=== PATIENT | female | born 1995 | race Asian ===

== ENCOUNTER 2018-05-27 05:55 | Inpatient (IN) | payer SELFPAY ==
[~2018-05-27] VITALS: Ht 160 cm; Wt 47.6 kg
[2018-05-27] MEDS ORDERED: LR 1,000 ML IV SCH ×2 (06:10→10:25)
[2018-05-27] MEDS ORDERED: CEFAZOLIN 2 GM IVPB PREMIX 50 ML IV ONE (06:15)
[2018-05-27 07:39] LABS: BASOPHILS % (AUTO) 0.2 % (0.0-2.0); EOSINOPHILS # (AUTO) 0.1 K/uL (0.0-0.4); EOSINOPHILS % (AUTO) 0.9 % (0.0-4.0); HEMATOCRIT 33.8 % (36-48); HEMOGLOBIN 11.6 g/dL (12.0-16.0); LYMPHOCYTES # (AUTO) 1.5 K/uL (1.0-5.5); LYMPHOCYTES % (AUTO) 25.9 % (20.5-51.5); MEAN CORPUSCULAR HEMOGLOBIN 30 pg (27-31); MEAN CORPUSCULAR HGB CONC 34 % (32-36); MEAN CORPUSCULAR VOLUME 89 fL (79.0-98.0); MONOCYTES # (AUTO) 0.4 K/uL (0.0-1.0); MONOCYTES % (AUTO) 6.9 % (1.7-9.3); NEUTROPHILS % (AUTO) 66.1 % (40.0-70.0); PLATELET COUNT (AUTO) 193 K/uL (130-430); RED BLOOD CELL COUNT(AUTO) 3.81 MIL/uL (4.2-6.2); RED CELL DISTRIBUTION WIDTH 13.4 % (9.0-15.0)
[2018-05-27] MEDS ORDERED: MORPHINE SULFATE 10MG/10ML PF AMP SP SCH (08:15)
[2018-05-27] MEDS ORDERED: KETOROLAC TROMETHAMINE 30 MG VIAL IVP PRN (08:15)
[2018-05-27] MEDS ORDERED: ONDANSETRON HCL 4 MG/2 ML VIAL IVP PRN ×2 (08:15)
[2018-05-27] MEDS ORDERED: DIPHENHYDRAMINE INJ 50 MG/ML VIAL IVP PRN (08:15)
[2018-05-27] MEDS ORDERED: NALBUPHINE HCL 10 MG/ML AMP IVP PRN (08:15)
[2018-05-27] MEDS ORDERED: NALOXONE HCL 0.4 MG/ML AMP (NARCAN) IVP PRN ×2 (08:15)
[2018-05-27] MEDS ORDERED: fentaNYL CITRATE/PF 100 MCG/2 ML AMP IVP PRN ×2 (08:15)
[2018-05-27] MEDS ORDERED: KETOROLAC TROMETHAMINE 60 MG/2 ML VIAL IM PRN (08:15)
[2018-05-27] MEDS ORDERED: BUPIVACAINE /PF 0.75% 10 ML VIAL INJ ONE (09:10)
[2018-05-27] MEDS ORDERED: LR 1,000 ML IV.SOLN IV ONE (09:10)
[2018-05-27] MEDS ORDERED: ONDANSETRON HCL 4 MG/2 ML VIAL IVP ONE (09:10)
[2018-05-27] MEDS ORDERED: NS IRRIG SOLN 1000 ML IR ONE (09:10)
[2018-05-27] MEDS ORDERED: METOCLOPRAMIDE HCL 10 MG/2 ML VIAL IVP ONE (09:10)
[2018-05-27] MEDS ORDERED: MORPHINE SULFATE 10MG/10ML PF AMP EP ONE (09:10)
[2018-05-27] MEDS ORDERED: MIDAZOLAM HCL 5 MG/5 ML VIAL IVP ONE (09:10)
[2018-05-27] MEDS ORDERED: OXYTOCIN/0.9 % SODIUM CHLORIDE 1,000 ML IV ONE (10:25)
[2018-05-27] MEDS ORDERED: SENNOSIDES/DOCUSATE SODIUM 1 TAB TABLET(SENOKOT-S) PO PRN (10:30)
[2018-05-27] MEDS ORDERED: MEASLES,MUMPS&RUBELLA VACC/PF 12500 UNIT/0.5 ML VIAL SUBQ PRN (10:30)
[2018-05-27] MEDS ORDERED: LANOLIN 7 GM OINT. TP PRN (10:30)
[2018-05-27] MEDS ORDERED: RHO(D) IMMUNE GLOBULIN/MALTOSE 1500 UNITS/1.3 ML (WINHRO) IM PRN (10:30)
[2018-05-27] MEDS ORDERED: BISACODYL 10 MG/SUPPOSITORY RC PRN (10:30)
[2018-05-27] MEDS ORDERED: ANUSOL 1 EA SUPP.RECT (PREPARATION H) RC PRN (10:30)
[2018-05-27] MEDS ORDERED: OXYCODONE/ACETAMINOPHEN 5-325 TABLET PO PRN (12:15)
[2018-05-27 15:09] VITALS: BP_SYST 111
[2018-05-27] MEDS: CEFAZOLIN 1 GM IVPB PREMIX 50 ML IV SCH ×2 (15:15→21:16)
[2018-05-27] MEDS ORDERED: TEMAZEPAM 15 MG CAPSULE PO PRN (21:00)
[2018-05-28] MEDS: CEFAZOLIN 1 GM IVPB PREMIX 50 ML IV SCH (03:13)
[2018-05-28 05:46] LABS: BASOPHILS % (AUTO) 0.1 % (0.0-2.0); EOSINOPHILS % (AUTO) 0.1 % (0.0-4.0); HEMATOCRIT 30.7 % (36-48); HEMOGLOBIN 10.2 g/dL (12.0-16.0); LYMPHOCYTES % (AUTO) 8.4 % (20.5-51.5); MEAN CORPUSCULAR HEMOGLOBIN 30 pg (27-31); MEAN CORPUSCULAR HGB CONC 33 % (32-36); MEAN CORPUSCULAR VOLUME 90 fL (79.0-98.0); MONOCYTES # (AUTO) 0.5 K/uL (0.0-1.0); MONOCYTES % (AUTO) 4.2 % (1.7-9.3); NEUTROPHILS # (AUTO) 10.5 K/uL (1.8-7.7); NEUTROPHILS % (AUTO) 87.2 % (40.0-70.0); PLATELET COUNT (AUTO) 193 K/uL (130-430); RED BLOOD CELL COUNT(AUTO) 3.42 MIL/uL (4.2-6.2); RED CELL DISTRIBUTION WIDTH 13.6 % (9.0-15.0)
[2018-05-28] MEDS: IBUPROFEN 600 MG TABLET PO SCH ×4 (05:53→23:51)
[2018-05-28] MEDS: DOCUSATE SODIUM 100 MG CAPSULE PO PRN ×2 (05:54→22:13)
[2018-05-28] MEDS: OXYCODONE/ACETAMINOPHEN 5-325 TABLET PO PRN ×3 (12:17→22:13)
[2018-05-28] MEDS: SIMETHICONE 80 MG TAB.CHEW PO PRN ×3 (12:18→22:13)
[2018-05-29] MEDS: DOCUSATE SODIUM 100 MG CAPSULE PO PRN (06:05)
[2018-05-29] MEDS: IBUPROFEN 600 MG TABLET PO SCH (06:05)
[2018-05-29] MEDS: SIMETHICONE 80 MG TAB.CHEW PO PRN ×2 (06:06→15:43)
[2018-05-29] MEDS: OXYCODONE/ACETAMINOPHEN 5-325 TABLET PO PRN ×2 (10:33→15:43)
== END 2018-05-29 17:19 | disposition home or self-care (01) | DRG 766 ==
LOC: SPU 05:55
PROVIDERS: ADMIT Obstetrics & Gynecology; ATTEND Obstetrics & Gynecology
PROC: 10D00Z1 Extraction of Products of Conception, Low, Open Approach (ICD-10-PCS; principal; 2018-05-26)
DX: O82 Encounter for cesarean delivery without indication (principal); Z3A.39 39 weeks gestation of pregnancy; Z37.0 Single live birth
CPT/HCPCS: 36415; 85025; 86886; 86900; 86901; 94760; J0690; J1885; J2250; J2274; J2405; J2590; J2765; J3490; J7120